=== PATIENT | female | born 1960 | race Native Hawaiian/Other Pacific Islander ===

== ENCOUNTER 2021-08-14 12:20 | Outpatient (CLI) | payer BC | END 2021-08-14 19:16 | disposition home or self-care (01) | LOC: CT 12:20 | PROVIDERS: ATTEND Registered Nurse | DX: R55 Syncope and collapse (principal) ==

== ENCOUNTER 2021-08-30 15:27 | Outpatient (CLI) | payer BC | END 2021-08-30 19:28 | disposition home or self-care (01) | LOC: RAD 15:27 | PROVIDERS: ATTEND Internal Medicine | DX: R05.9 Cough, unspecified (principal); Z86.16 Personal history of COVID-19; Z09 Encounter for follow-up examination after completed treatment for conditions other than malignant neoplasm ==